=== PATIENT | male | born 1990 | race African-American/Black ===

== ENCOUNTER 2017-08-09 08:19 | Emergency (ER) | payer OTHER ==
[~2017-08-09] VITALS: Ht 193 cm; Wt 156.0 kg
[2017-08-09 08:30] VITALS: BP 127/89
== END 2017-08-09 14:28 | disposition left against medical advice (07) ==
LOC: ER 09:53
DX: Z53.21 Procedure and treatment not carried out due to patient leaving prior to being seen by health care provider (principal)